=== PATIENT | male | born 1970 | race Two or more races ===

== ENCOUNTER 2022-05-10 17:51 | Inpatient (IN) | payer OTHER ==
[~2022-05-10] VITALS: Ht 167.6 cm; Wt 129.3 kg
--- NOTE | 2022-05-10 18:00 | NUR ---
pt bibra from urgent care, flu like symptoms for past couple of days. pt is tachycardic and afebrile scow captain. gowned and placed on monitor. awaiting md araya.
[2022-05-10] MEDS ORDERED: DEXAMETHASONE SOD PHOSPHATE 10 MG/ML VIAL ONE (18:53)
[2022-05-10] MEDS ORDERED: ACETAMINOPHEN ES 500 MG TABLET ONE (18:53)
[2022-05-10] MEDS ORDERED: DEXAMETHASONE SOD PHOSPHATE 10 MG/ML VIAL IV ONE (19:00)
[2022-05-10] MEDS ORDERED: IV NS 0.9% 1,000 ML BAG IV ONE (19:00)
[2022-05-10] MEDS ORDERED: ACETAMINOPHEN ES 500 MG TABLET PO ONE ×2 (19:00→22:00)
--- NOTE | 2022-05-10 19:08 | NUR ---
SUBMITTED MOVE SHEETS
--- NOTE | 2022-05-10 19:45 | NUR ---
FLU AND COVID SWAB COLLECTED
--- NOTE | 2022-05-10 19:45 | NUR ---
WITH O2 CANNULA AT 2LPM
--- NOTE | 2022-05-10 19:45 | NUR ---
RECEIVED REPORT FROM SUELLEN SIMPSON. PATIENT CAME WITH CC OF FLU. PLACED IN BED. ATTACHED TO MONITOR. VITALS CHECKED. PATIENT IS AAOX4. ABLE TO MAKE NEEDS KNOWN. WITH IV CANNULA G18 ON RIGHT AC.
[2022-05-10 19:53] LABS: BASOPHILS % (AUTO) 0.3 % (0.0-2.0); EOSINOPHILS % (AUTO) 0.5 % (0.0-6.0); HEMATOCRIT 49 % (39-51); HEMOGLOBIN 16.2 g/dL (13.5-17.5); LYMPHOCYTES # (AUTO) 0.9 K/uL (0.8-4.8); LYMPHOCYTES % (AUTO) 9.8 % (20.0-44.0); MEAN CORPUSCULAR HGB CONC 33 g/dl (31.0-36.0); MEAN CORPUSCULAR VOLUME 87 fL (80-96); MONOCYTES # (AUTO) 1.6 K/uL (0.1-1.30); NEUTROPHILS % (AUTO) 72.4 % (43.0-81.0); PLATELET COUNT (AUTO) 197 K/uL (150-450); RED BLOOD CELL COUNT(AUTO) 5.62 MIL/uL (4.5-6.0); WHITE BLOOD COUNT (AUTO) 9.6 K/uL (4.3-11.0)
[2022-05-10 20:28] LABS: SITE, VBG Left Radial; VBG COHb 0.8 %; VBG MetHb 0.2 %; VBG O2Hb 87.8 %; VENT MODE, VBG Room Air
--- NOTE | 2022-05-10 20:31 | NUR ---
CALLED [facility], PAGED FOR ADMISSION
--- NOTE | 2022-05-10 20:32 | NUR ---
PAGED EPIC LATOYA JOHN NP
[2022-05-10 20:55] LABS: CALCIUM, SERUM 8.4 mg/dL (8.5-10.1); CARBON DIOXIDE 29 mmol/L (21-32); CHLORIDE 94 mmol/L (98-107); CREATININE 0.7 mg/dL (0.6-1.3); GLUCOSE 128 mg/dL (74-106); POTASSIUM 3.3 mmol/L (3.5-5.1); SODIUM SERUM 134 mmol/L (136-145); UREA NITROGEN, BLOOD 7 mg/dL (7-18)
[2022-05-10] MEDS ORDERED: ASPIRIN 325 MG TABLET PO ONE (21:00)
[2022-05-10 21:15] LABS: ALANINE AMINOTRANSFERASE 96 U/L (12-78); ALBUMIN 3.8 g/dL (3.4-5.0); ALKALINE PHOSPHATASE 98 U/L (46-116); ASPARTATE AMINOTRANSFERASE 83 U/L (15-37); BILIRUBIN,DIRECT 0.5 mg/dL (0.0-0.2); BILIRUBIN,TOTAL 1.9 mg/dL (0.2-1.0); TOTAL PROTEIN, SERUM 8.4 g/dL (6.4-8.2)
[2022-05-10] MEDS ORDERED: ACETAMINOPHEN 325 MG TABLET PO PRN (21:30)
[2022-05-10] MEDS ORDERED: MAGNESIUM HYDROXIDE 30 ML UDC PO PRN (21:30)
[2022-05-10] MEDS ORDERED: Z GUARD REMEDY 4 OZ OINT TP PRN (21:30)
[2022-05-10] MEDS ORDERED: AZITHROMYCIN 500 MG in IV D5W 250 ML IV SCH (21:30)
[2022-05-10] MEDS ORDERED: ENOXAPARIN SODIUM 40 MG/0.4 ML DISP.SYRIN SQ SCH (21:30)
[2022-05-10] MEDS ORDERED: MAG HYDROX/AL HYDROX/SIMETH 30 ML UDC PO PRN (21:30)
[2022-05-10] MEDS ORDERED: ALBUTEROL FS 2.5 MG/0.5 ML VIAL.NEB NEB PRN (21:30)
[2022-05-10 21:43] LABS: BAND % (MANUAL) 1 % (0.0-5.0); EOSINOPHILS % (MANUAL) 1 % (0-4); LYMPHOCYTES % (MANUAL) 10 % (16-48); MONOCYTES % (MANUAL) 16 % (0-11.0); NEUTROPHILS % (MANUAL) 72 (42-76)
[2022-05-10] MEDS: POTASSIUM CL. PREMIX PERIPHER. 50 ML IV SCH ×2 (22:00→23:00)
[2022-05-10 22:26] LABS: C-REACTIVE PROTEIN 3.3 mg/dL (0.0-0.9)
--- NOTE | 2022-05-11 01:06 | NUR ---
ROOM 109
[2022-05-11] MEDS ORDERED: ASPIRIN 325 MG TABLET ONE (01:09)
[2022-05-11] MEDS ORDERED: ACETAMINOPHEN ES 500 MG TABLET ONE (01:26)
[2022-05-11] MEDS ORDERED: IPRATROPIUM NEB FS 0.5 MG/2.5 ML AMPUL.NEB NEB PRN (02:00)
--- NOTE | 2022-05-11 02:13 | NUR ---
REPORT GIVEN TO LENA KEN
--- NOTE | 2022-05-11 03:47 | NUR ---
URINE SPECIMEN SENT TO LAB, AUTOMOTIVE TIRE WORKER CAME TO DRAW BLOODS
[2022-05-11 04:08] LABS: BILIRUBIN,URINE NEGATIVE (NEGATIVE); COLOR,URINE YELLOW (YELLOW); LEUKOCYTE ESTERASE ,URINE NEGATIVE (NEGATIVE); NITRITE, URINE NEGATIVE (NEGATIVE); PROTEIN,URINE NEGATIVE (NEGATIVE); UGLUCOSE NEGATIVE (NEGATIVE); UROBILINOGEN,URINE 0.2 EU/dL (0.2)
--- NOTE | 2022-05-11 04:10 | NUR ---
ADMISSION 51 y/o male A/O x4. Skin intact, BLE dryness. IV Right AC intact. [place] patient to room, unit, staff. Contact/Droplet/Airborne precaution maintained r/o Covid 19. Covid test rapid negative. PCR pending.
--- NOTE | 2022-05-11 04:11 | NUR ---
TRANSFERRED PT TO ROOM VIA ACLS PROTOCOL
[2022-05-11 04:16] LABS: BACTERIA,URINE None seen /HPF (None Seen); SQUAMOUS EPITHELIAL CELL,UR Few /HPF (None Seen); WBC,URINE 0-2 /HPF (0-3)
--- NOTE | 2022-05-11 04:37 | NUR ---
CRITICAL VALUE Troponin high 381. Notified TEENAGE BABYSITTER Judi Ely with no new orders at this time. Patient denies any discomfort, no c/o chest pain. Will cont to monitor.
--- NOTE | 2022-05-11 07:30 | NUR ---
CAFETERIA ATTENDANT OPENING NOTES: RECEIVED PT IN BED AWAKE. ALERT AND ORIENTED X 4 AND ABLE TO MAKE NEEDS KNOWN. ON O2 INHALATION @ 2LPM VIA NC ON AND OFF AND TOLERATING WELL. ON RN DOCUMENTATION WITH CURRENT READING OF SINUS@70BPM. PT NOTED WITH RFA GAUGE 18,PATENT,INTACT AND SL. SAFETY MEASURES MAINTAINED: BED LOCKED AND IN LOWEST POSITION,SIDE RAILS UP X 2. CALL LIGHT IN EASY REACH FOR HELP. WILL MONITOR PT ACCORDINGLY.
[2022-05-11 07:37] LABS: CALCIUM, SERUM 8.2 mg/dL (8.5-10.1); CREATININE 0.6 mg/dL (0.6-1.3); MAGNESIUM 2.2 mg/dL (1.8-2.4); PHOSPHORUS 3.9 mg/dL (2.5-4.9); POTASSIUM 3.6 mmol/L (3.5-5.1)
[2022-05-11] MEDS: PANTOPRAZOLE 40 MG TABLET.DR PO SCH (07:45)
[2022-05-11 08:00] VITALS: BP 148/85
--- NOTE | 2022-05-11 08:03 | NUR ---
END OF SHIFT REPORT Patient in bed, A/O x4. Sinus rhythm HR 70's in the Telemonitor. Denies chest pain. Maintaining Oxygenation 97% in RA. Covid rapid negative result. Covid PCR test pending result. location worker consult, patient homeless. Endorsed to SUELLEN Redman.
[2022-05-11 08:05] LABS: THYROID STIMULATING HORMONE 0.665 uIU/mL (0.358-3.74)
[2022-05-11 08:39] LABS: BASOPHILS % (AUTO) 0.1 % (0.0-2.0); HEMATOCRIT 46 % (39-51); HEMOGLOBIN 15.2 g/dL (13.5-17.5); LYMPHOCYTES % (AUTO) 13.8 % (20.0-44.0); MEAN CORPUSCULAR HGB CONC 33 g/dl (31.0-36.0); MEAN CORPUSCULAR VOLUME 87 fL (80-96); MONOCYTES # (AUTO) 1.1 K/uL (0.1-1.30); MONOCYTES % (AUTO) 15.1 % (2.0-12.0); PLATELET COUNT (AUTO) 191 K/uL (150-450); RED BLOOD CELL COUNT(AUTO) 5.26 MIL/uL (4.5-6.0)
[2022-05-11] MEDS ORDERED: RIFA300C4 PO (08:47)
[2022-05-11] MEDS ORDERED: IPRA3AMP22 IH (08:47)
[2022-05-11] MEDS ORDERED: POTA20TA83 PO (08:47)
[2022-05-11] MEDS ORDERED: MAGN400T8 PO (08:47)
[2022-05-11] MEDS ORDERED: METF500S7 PO (08:47)
[2022-05-11] MEDS ORDERED: AMLO10TA4 PO (08:47)
[2022-05-11] MEDS ORDERED: FLUT10.62 IH (08:47)
[2022-05-11] MEDS ORDERED: MONT10TA22 PO (08:47)
[2022-05-11] MEDS: AZITHROMYCIN 500 MG in IV D5W 250 ML IV SCH (08:51)
[2022-05-11] MEDS: ASPIRIN 81 MG TAB.CHEW PO SCH (08:51)
[2022-05-11] MEDS: ENOXAPARIN SODIUM 40 MG/0.4 ML DISP.SYRIN SQ SCH (08:54)
[2022-05-11] MEDS ORDERED: DEXTROSE 50%-WATER 50 ML DISP.SYRIN IV PRN (09:00)
[2022-05-11] MEDS ORDERED: DEXAMETHASONE SOD PHOSPHATE 10 MG/ML VIAL IV SCH (09:00)
[2022-05-11] MEDS ORDERED: RIFAMPIN 300 MG CAPSULE PO SCH (09:00)
[2022-05-11] MEDS: METFORMIN 500 MG TABLET PO SCH ×2 (09:07→16:16)
[2022-05-11] MEDS: MAGNESIUM OXIDE 400 MG TABLET PO SCH (09:07)
[2022-05-11] MEDS: AMLODIPINE BESYLATE 10 MG TABLET PO SCH (09:08)
[2022-05-11] MEDS ORDERED: CEFTRIAXONE 1GM BAG (ER ONLY) 1 GM/50 ML PIGGYBACK IV SCH (10:00)
[2022-05-11] MEDS ORDERED: ALBUTEROL FS 2.5 MG/0.5 ML VIAL.NEB NEB SCH (10:00)
[2022-05-11] MEDS: ONDANSETRON HCL/PF 4 MG/2 ML VIAL IVP PRN (11:18)
[2022-05-11] MEDS: BLOOD SUGAR DIAGNOSTIC 1 EACH STRIP IN SCH ×3 (11:38→22:55)
[2022-05-11] MEDS: INSULIN REGULAR, HUMAN 100 UNIT/ML 3 ML VIAL SQ PRN ×3 (11:39→23:10)
[2022-05-11] MEDS: CEFTRIAXONE 2 G in IV D5W 100 ML IV SCH (11:49)
[2022-05-11] MEDS: FLUTICASONE/VILANTEROL 1 EACH BLST.W.DEV IH SCH (11:50)
[2022-05-11 12:00] VITALS: BP 133/80
[2022-05-11] MEDS: IPRATROPIUM BROMIDE 14 GM INHALER (or 12.9 GM) IH SCH ×2 (12:42→19:30)
--- NOTE | 2022-05-11 13:17 | NUR ---
"SW Consult: SW consult requested for patient possible homelessness. SW conducted a phone assessment with patient who is in [facility] with possible COVID +. Patient was brought in due to fever, cough, and congestion. Patient presents alert and oriented x3 (self,place,time). Patient reported that he is currently homeless and has been living in his car for about a year. Patient stated prior to being homeless he was renting a room with a friend. 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 Patient stated that he currently has no family support. SW assessed for suicidal or homicidal ideation, pt denied. SW assessed for visual/auditory hallucinations, pt denied. Pt denied any mental illnesses. SW assessed for substance abuse and pt denied. Pt stated that he would want to return back to his car which he has parked it near [facility] but was not able to identify address. SW offered pt resources such as shelters and pt was accepting. DC PLAN: Pt reported that he lives in his car and has been living in his car for a year. He reported upon discharge he would want to return back to his car which is parked in [facility] (address was unable to be identified). Shelters: [place] Provider: [facility] [place] Address: [address] [place], [address] # of Beds: 47 Population Served: [facility] 6 | [facility] Katie Allred [place] Provider: [facility] Address: [address], [address] # of Beds: 66 Population Served: [facility] [employer] [place] Provider: [facility] Serve Address: [address] [facility], [address] # of Beds: 56 Population Served: [facility] [place] Provider: [facility] Address: [address] [facility] [facility], [address] # of Beds: 49 Population Served: [facility] 8 | [facility] Provider: First to Serve Address: [address] [facility] [facility], [address] # of Beds: 37 Population Served: Co[facility] Hygiene: [facility]: [address] [address] [place] ; [place] [facility] [address] [facility] ; [facility] [address] [place] . Food Resources: [place] [facility] at [facility] [address] [place]; Meet Each Need with Dignity ([facility]) [address] [facility] [place]; [facility] [address] [facility]; [facility] [address] [facility] [place]. Mental Health resources provided: [facility] [address] [place] [address] ; [facility] [address], [place] [address] ; [facility] [address] [place] [address] ; [facility] [address] [place], [place] [phone] Healthcare Clinics: [facility] [address], [address] [place]. [place] ; [facility] [address] [place] [address]; [facility] [address] [facility]. [place] [phone] Counseling--Outpatient [facility] [address], [place] [address] (Specializes in in-depth psychotherapy for emotional distress: anxiety, depression, interpersonal conflicts, life transitions, childhood abuse) [facility] [address] [place] [address] (Assist with solving problem marital difficulties, separation & divorce, aging parents, & grief, chronic & terminal illness) [facility] [address] [place] [address] (Deal with loss & grief, anxiety, marital difficulties) Homebound/Mental Health Services [address] [place], [place] [address] (Provide in-home mental services to people who are incapable of leaving their homes) [facility] [address] [place] [address] [facility] [address] [place], [place] [phone] PSYCHIATRIC OUTPATIENT SERVICES [facility] Partial Hospitalization and Intensive Outpatient Program (Managed Care and [place] Only)[address] [address] [facility] [phone] [facility] Partial Hospitalization and Outpatient [id number] [place], [place] [phone] [facility] [id number] [place], [place] [phone] [facility] Partial Hospitalization and Outpatient [id number] [facility] Wilton BerriosBELLE MEAD, [phone] "
--- NOTE | 2022-05-11 13:40 | NUR ---
RN NOTES: MRSA R NARES SPECIMEN GATHERED. CALLED LAB FOR MANAGER ARCHITECTURE.
[2022-05-11] MEDS: RIFAMPIN 300 MG CAPSULE PO SCH (15:18)
[2022-05-11 16:00] VITALS: BP 129/80
[2022-05-11] MEDS: methylPREDNISolone SOD SUCC 40 MG/ML VIAL IV SCH (16:16)
[2022-05-11 17:36] LABS: BASOPHILS % (MANUAL) 0 % (0.0-2.0); EOSINOPHILS % (MANUAL) 0 % (0-4); LYMPHOCYTES % (MANUAL) 14 % (16-48); MONOCYTES % (MANUAL) 13 % (0-11.0); NEUTROPHILS % (MANUAL) 73 (42-76)
--- NOTE | 2022-05-11 18:49 | NUR ---
FLASK CLEANER CLOSING NOTES: PT IN BED AWAKE. ALERT AND ORIENTED X 4 AND ABLE TO MAKE NEEDS KNOWN. ON O2 INHALATION @ 2LPM VIA NC ON AND OFF AND TOLERATING WELL. ON BRIM POUNCING MACHINE OPERATOR WITH CURRENT READING OF SINUS@79BPM. PT NOTED WITH RFA GAUGE 18,PATENT,INTACT AND SL. SAFETY MEASURES MAINTAINED: BED LOCKED AND IN LOWEST POSITION,SIDE RAILS UP X 2. CALL LIGHT IN EASY REACH FOR HELP. WILL MONITOR PT ACCORDINGLY.ENDORSED TO HEAD GREENSKEEPER RN FOR MARY CARMEN.
--- NOTE | 2022-05-11 19:40 | NUR ---
PICKLER HELPER OPENING NOTE RECEIVED PT IN BED AWAKE. PT ALERT AND ORIENTED X 4, AND ABLE TO MAKE NEEDS KNOWN. WITH EPISODES OF FORGETFULNESS AND CONFUSION. NEEDS FREQUENT REORIENTATION AND RE DIRECTION. PT APPEARED ANXIOUS. ON O2 INHALATION @ 2LPM VIA NC AND TOLERATING WELL. ON POUND ATTENDANT WITH CURRENT READING OF A FIB @ 77 BPM. IV ACCESS TO LEFT FA GAUGE 20, PATENT, INTACT AND SL. SAFETY MEASURES MAINTAINED: BED LOCKED AND IN LOWEST POSITION,SIDE RAILS UP X 2. CALL LIGHT IN EASY REACH FOR HELP. WILL MONITOR PT ACCORDINGLY.
[2022-05-11 20:00] VITALS: BP 159/97
[2022-05-11] MEDS: MONTELUKAST SODIUM (10MG) 10 MG TABLET PO SCH (22:54)
[2022-05-12] VITALS: BP 152/88
[2022-05-12 04:00] VITALS: BP 130/65
[2022-05-12 05:49] LABS: BASOPHILS % (AUTO) 0.1 % (0.0-2.0); HEMATOCRIT 46 % (39-51); HEMOGLOBIN 15.2 g/dL (13.5-17.5); LYMPHOCYTES # (AUTO) 1.5 K/uL (0.8-4.8); LYMPHOCYTES % (AUTO) 22.7 % (20.0-44.0); MEAN CORPUSCULAR HGB CONC 33 g/dl (31.0-36.0); MEAN CORPUSCULAR VOLUME 87 fL (80-96); MONOCYTES # (AUTO) 1.1 K/uL (0.1-1.30); MONOCYTES % (AUTO) 15.9 % (2.0-12.0); NEUTROPHILS # (AUTO) 4.2 K/uL (1.8-8.9); NEUTROPHILS % (AUTO) 61.3 % (43.0-81.0); PLATELET COUNT (AUTO) 213 K/uL (150-450); RED BLOOD CELL COUNT(AUTO) 5.31 MIL/uL (4.5-6.0); WHITE BLOOD COUNT (AUTO) 6.8 K/uL (4.3-11.0)
[2022-05-12 06:04] LABS: ALBUMIN 3.1 g/dL (3.4-5.0); BILIRUBIN,TOTAL 0.6 mg/dL (0.2-1.0); CREATININE 0.7 mg/dL (0.6-1.3); POTASSIUM 3.4 mmol/L (3.5-5.1); TOTAL PROTEIN, SERUM 7.2 g/dL (6.4-8.2)
[2022-05-12] MEDS: BLOOD SUGAR DIAGNOSTIC 1 EACH STRIP IN SCH ×4 (07:09→22:58)
[2022-05-12] MEDS: INSULIN REGULAR, HUMAN 100 UNIT/ML 3 ML VIAL SQ PRN ×2 (07:10→23:13)
--- NOTE | 2022-05-12 07:10 | NUR ---
PUBLIC SERVICE OFFICER CLOSING NOTE PT IN BED AWAKE. ALERT AND ORIENTED X 4 AND ABLE TO MAKE NEEDS KNOWN. ON O2 INHALATION @ 2LPM VIA NC ON AND OFF AND TOLERATING WELL. ON SALES ORDER ADMINISTRATOR WITH CURRENT READING OF SINUS. PT NOTED WITH RFA GAUGE 18,PATENT,INTACT AND SL. SAFETY MEASURES MAINTAINED: BED LOCKED AND IN LOWEST POSITION,SIDE RAILS UP X 2. CALL LIGHT IN EASY REACH FOR HELP. WILL ENDORSE TO AM SHIFT RN FOR MARY CARMEN.
[2022-05-12] MEDS: IPRATROPIUM BROMIDE 14 GM INHALER (or 12.9 GM) IH SCH ×2 (07:35→13:30)
--- NOTE | 2022-05-12 07:59 | NUR ---
FURNITURE FINISHER HELPER OPENING NOTE RECEIVED PT IN BED AWAKE. PT ALERT AND ORIENTED X 4, AND ABLE TO MAKE NEEDS KNOWN. WITH EPISODES OF FORGETFULNESS AND CONFUSION. NEEDS FREQUENT REORIENTATION AND RE DIRECTION. PT APPEARED ANXIOUS. ON O2 INHALATION @ 2LPM VIA NC AND TOLERATING WELL. ON CONSULTING IT ARCHITECT. NOTED WITH RIGHT AC PIV INTACT AND SL. SAFETY MEASURES MAINTAINED: BED LOCKED AND IN LOWEST POSITION,SIDE RAILS UP X 2. CALL LIGHT IN EASY REACH FOR HELP. PLAN OF CARE CONTINUE.
[2022-05-12 08:00] VITALS: BP 158/94
[2022-05-12] MEDS: ASPIRIN 81 MG TAB.CHEW PO SCH (08:46)
[2022-05-12] MEDS: MAGNESIUM OXIDE 400 MG TABLET PO SCH (08:46)
[2022-05-12] MEDS: POTASSIUM CHLORIDE 20 MEQ TAB.PRT.SR PO SCH ×2 (08:46→08:56)
[2022-05-12] MEDS: RIFAMPIN 300 MG CAPSULE PO SCH (08:47)
[2022-05-12] MEDS: AMLODIPINE BESYLATE 10 MG TABLET PO SCH (08:47)
[2022-05-12] MEDS: VALSARTAN 80 MG TABLET PO SCH (08:47)
[2022-05-12] MEDS: methylPREDNISolone SOD SUCC 40 MG/ML VIAL IV SCH ×2 (08:47→16:05)
[2022-05-12] MEDS: PANTOPRAZOLE 40 MG TABLET.DR PO SCH (08:48)
[2022-05-12] MEDS: METFORMIN 500 MG TABLET PO SCH ×2 (08:48→16:05)
[2022-05-12] MEDS: ENOXAPARIN SODIUM 40 MG/0.4 ML DISP.SYRIN SQ SCH (08:53)
[2022-05-12] MEDS: FLUTICASONE/VILANTEROL 1 EACH BLST.W.DEV IH SCH (08:54)
[2022-05-12] MEDS: AZITHROMYCIN 500 MG in IV D5W 250 ML IV SCH (08:56)
[2022-05-12] MEDS: CEFTRIAXONE 2 G in IV D5W 100 ML IV SCH (11:12)
--- NOTE | 2022-05-12 11:41 | NUR ---
ALTERATIONS WORKROOM CLERK NOTES ULTRASOUND OF ABDOMEN DONE. PLAN OF CARE CONTINUE.
[2022-05-12 12:00] VITALS: BP 150/80
[2022-05-12] MEDS: ONDANSETRON HCL/PF 4 MG/2 ML VIAL IVP PRN (12:17)
[2022-05-12 14:39] LABS: BAND % (MANUAL) 4 % (0.0-5.0); EOSINOPHILS % (MANUAL) 1 % (0-4); LYMPHOCYTES % (MANUAL) 24 % (16-48); MONOCYTES % (MANUAL) 13 % (0-11.0); NEUTROPHILS % (MANUAL) 58 (42-76)
[2022-05-12 16:00] VITALS: BP 151/82
--- NOTE | 2022-05-12 17:41 | NUR ---
URINE COLLECTED AND CALLED LAB TO PICK IT UP. Addendum: 05/12/22 at 1849 by ANASTASIA ESCALANTE RN WRONG PATIENT
--- NOTE | 2022-05-12 18:27 | NUR ---
SUPERVISOR ANODIZING CLOSING NOTE PATIENT AWAKE SITTING AT THE EDGE OF THE BED, PT ALERT AND ORIENTED X 4, AND ABLE TO MAKE NEEDS KNOWN. WITH BRP, AMBULATORY. ON O2 INHALATION @ 2LPM VIA NC AND TOLERATING WELL. ON HOUSEPERSON WITH SR READING HR 89. NOTED WITH RIGHT AC PIV PATENT AND INTACT, FLUSHES WELL. SAFETY MEASURES MAINTAINED: BED LOCKED AND IN LOWEST POSITION,SIDE RAILS UP X 2. CALL LIGHT IN EASY REACH FOR HELP. WILL ENDORSE TO NIGHT NURSE FOR MARY CARMEN. Addendum: 05/12/22 at 1925 by ANASTASIA ESCALANTE RN LIVER ULTRASOUND RESULT RECEIVED, INFORMED DR. CHARLES, NO NEW ORDER, ENDORSED TO CEO & CO FOUNDER NURSE.
--- NOTE | 2022-05-12 19:40 | NUR ---
BIOMEDICAL ENGINEERING TECHNICIAN OPENING NOTE RECEIVED PATIENT IN BED; AWAKE, ALERT AND ORIENTED X 4. ON O2 INHALATION @ 2 LPM VIA NASAL CANNULA; TOLERATING WELL. BREATHING EVEN AND NONLABORED. NOT IN ANY FORM OF RESPIRATORY OR CARDIAC DISTRESS. DENIES ANY PAIN OR DISCOMFORT AT THIS TIME. ON TELE MONITORING WITH CURRENT READING OF SINUS RHYTHM HR-75 BPM. WITH IV ACCESS ON RIGHT AC 18G; PATENT, INTACT AND SALINE LOCKED. SAFETY MEASURES IMPLEMENTED: CALL LIGHT AND TABLE WITHIN REACH, SIDE RAILS UP X 2, BED IN LOWEST LOCKED POSITION. WILL CONTINUE TO MONITOR.
[2022-05-12 20:00] VITALS: BP 159/90
[2022-05-12] MEDS: MONTELUKAST SODIUM (10MG) 10 MG TABLET PO SCH (22:08)
[2022-05-13] VITALS: BP 162/93
--- NOTE | 2022-05-13 00:10 | NUR ---
RN NOTE BP RECHECKED - 150/89 MM HG
[2022-05-13 04:00] VITALS: BP 151/87
[2022-05-13 06:03] LABS: BASOPHILS % (AUTO) 0.2 % (0.0-2.0); EOSINOPHILS % (AUTO) 0.1 % (0.0-6.0); HEMATOCRIT 45 % (39-51); HEMOGLOBIN 14.9 g/dL (13.5-17.5); LYMPHOCYTES # (AUTO) 1.8 K/uL (0.8-4.8); LYMPHOCYTES % (AUTO) 26.1 % (20.0-44.0); MEAN CORPUSCULAR HGB CONC 33 g/dl (31.0-36.0); MEAN CORPUSCULAR VOLUME 87 fL (80-96); MONOCYTES % (AUTO) 14.2 % (2.0-12.0); NEUTROPHILS # (AUTO) 4.2 K/uL (1.8-8.9); NEUTROPHILS % (AUTO) 59.4 % (43.0-81.0); PLATELET COUNT (AUTO) 226 K/uL (150-450); RED BLOOD CELL COUNT(AUTO) 5.17 MIL/uL (4.5-6.0); WHITE BLOOD COUNT (AUTO) 7.1 K/uL (4.3-11.0)
[2022-05-13 06:14] LABS: BILIRUBIN,TOTAL 0.3 mg/dL (0.2-1.0); CALCIUM, SERUM 7.7 mg/dL (8.5-10.1); CREATININE 0.6 mg/dL (0.6-1.3); POTASSIUM 3.3 mmol/L (3.5-5.1); TOTAL PROTEIN, SERUM 6.9 g/dL (6.4-8.2)
--- NOTE | 2022-05-13 06:55 | NUR ---
ELECTRICAL APPRENTICE CLOSING NOTE PATIENT IN BED; AWAKE, A/O X 4. STILL ON O2 INHALATION @ 2 LPM VIA NASAL CANNULA; WELL TOLERATED. BREATHING EQUAL AND UNLABORED. IN NO ACUTE DISTRESS. NO C/O ANY PAIN OR DISCOMFORT AT THIS TIME. ON TELE MONITORING WITH CURRENT READING OF SINUS RHYTHM HR-76 BPM. WITH IV ACCESS ON RIGHT AC 18G; PATENT, INTACT AND SALINE LOCKED. SAFETY MEASURES MAINTAINED: CALL LIGHT AND TABLE WITHIN REACH, SIDE RAILS UP X 2, BED IN LOWEST LOCKED POSITION. ENDORSED TO INCOMING NURSE FOR MARY CARMEN.
--- NOTE | 2022-05-13 07:30 | NUR ---
PRECISION ASSEMBLY INSPECTOR OPENING NOTE PATIENT IN BED; AWAKE, A/O X 4. STILL ON O2 INHALATION @ 2 LPM VIA NASAL CANNULA; WELL TOLERATED. BREATHING EQUAL AND UNLABORED. IN NO ACUTE DISTRESS. NO C/O ANY PAIN OR DISCOMFORT AT THIS TIME. ON TELE MONITORING WITH CURRENT READING OF SINUS RHYTHM HR-78 BPM. WITH IV ACCESS ON RIGHT AC 18G; PATENT, INTACT AND SALINE LOCKED. SAFETY MEASURES MAINTAINED: CALL LIGHT AND TABLE WITHIN REACH, SIDE RAILS UP X 2, BED IN LOWEST LOCKED POSITION. WILL CONTINUE TO MONITOR.
[2022-05-13 08:00] VITALS: BP 146/86
[2022-05-13] MEDS: BLOOD SUGAR DIAGNOSTIC 1 EACH STRIP IN SCH ×4 (08:02→21:57)
[2022-05-13] MEDS: INSULIN REGULAR, HUMAN 100 UNIT/ML 3 ML VIAL SQ PRN ×3 (08:03→22:18)
[2022-05-13] MEDS: IPRATROPIUM BROMIDE 14 GM INHALER (or 12.9 GM) IH SCH ×3 (08:05→18:56)
[2022-05-13] MEDS: PANTOPRAZOLE 40 MG TABLET.DR PO SCH (08:32)
[2022-05-13] MEDS: METFORMIN 500 MG TABLET PO SCH ×2 (08:54→17:32)
[2022-05-13] MEDS: methylPREDNISolone SOD SUCC 40 MG/ML VIAL IV SCH ×2 (08:54→17:33)
[2022-05-13] MEDS: ASPIRIN 81 MG TAB.CHEW PO SCH (08:54)
[2022-05-13] MEDS: MAGNESIUM OXIDE 400 MG TABLET PO SCH (08:55)
[2022-05-13] MEDS: VALSARTAN 80 MG TABLET PO SCH (08:55)
[2022-05-13] MEDS: AMLODIPINE BESYLATE 10 MG TABLET PO SCH (08:56)
[2022-05-13] MEDS: ENOXAPARIN SODIUM 40 MG/0.4 ML DISP.SYRIN SQ SCH (08:57)
--- NOTE | 2022-05-13 10:02 | NUR ---
RN NOTE LOULUO WALKER NOT AVAILABLE IN THE UNIT, MADE A FOLLOW UP TO PHARMACY. WILL MONITOR.
[2022-05-13] MEDS: FLUTICASONE/VILANTEROL 1 EACH BLST.W.DEV IH SCH (10:30)
[2022-05-13] MEDS ORDERED: POTASSIUM CHLORIDE 20 MEQ TAB.PRT.SR PO ONE (11:00)
[2022-05-13 12:00] VITALS: BP 156/85
[2022-05-13 16:00] VITALS: BP 151/92
--- NOTE | 2022-05-13 19:36 | NUR ---
INDUSTRIAL REFRIGERATION MECHANIC CLOSING NOTE PATIENT IN BED; AWAKE, A/O X 4. STILL ON O2 INHALATION @ 2 LPM VIA NASAL CANNULA; WELL TOLERATED. BREATHING EQUAL AND UNLABORED. IN NO ACUTE DISTRESS. NO C/O ANY PAIN OR DISCOMFORT AT THIS TIME. ON TELE MONITORING WITH CURRENT READING OF SINUS RHYTHM HR-81 BPM. WITH IV ACCESS ON RIGHT AC 18G; PATENT, INTACT AND SALINE LOCKED. ALL MEDS GIVEN. KEPT COMFORTABLE. SAFETY MEASURES MAINTAINED: CALL LIGHT AND TABLE WITHIN REACH, SIDE RAILS UP X 2, BED IN LOWEST LOCKED POSITION. ENDORSED TO NEXT NOD FOR MARY CARMEN.
--- NOTE | 2022-05-13 19:53 | NUR ---
noc rn note received patient in bed, a/ox4. no s/s of apparent distress on 2lpm of o2 via nc. denies any pain at this time. reading sr on the tele monitor with 78 bpm. no fluids running at this time. needs attended for now. call light within reach. safety in place. will continue with the plan of care for patient.
[2022-05-13 20:00] VITALS: BP 174/99
--- NOTE | 2022-05-13 21:42 | NUR ---
noc rn note- bp re-check patient bp 183/91 upon re-check, at rest. Messaged environmental field technician Judi for order. environmental field technician ordered Apresoline 10mg q4hr PRN to keep SBP <160. order carried out.
[2022-05-13] MEDS: MONTELUKAST SODIUM (10MG) 10 MG TABLET PO SCH (21:56)
[2022-05-13] MEDS: hydrALAZINE HCL IV 20 MG VIAL IV PRN (21:57)
--- NOTE | 2022-05-13 23:09 | NUR ---
noc rn note patient just ambulated to the restroom at this time and told me to just re-check bp for midnight.
[2022-05-14] VITALS (7 sets, daily range): BP systolic 149–167; BP diastolic 83–97
[2022-05-14] MEDS: hydrALAZINE HCL IV 20 MG VIAL IV PRN ×2 (04:28→17:55)
[2022-05-14 05:49] LABS: ABG BASE EXCESS 8.9 mmol/L; ABG PCO2 52.1 mmHg (35.0-45.0); ABG PH 7.445 (7.350-7.450); ABG PO2 55.2 mmHg (75.0-100.0); AaDO2 32.1 mmHg; MetHb 0.3 % (0.0-1.5); O2Hb 88.8 % (94.0-97.0); SITE, ABG Right Radial; VENT MODE, BG ROOM AIR
--- NOTE | 2022-05-14 06:41 | NUR ---
noc rn note refused blood draw at this time. told candy waffle assembler to come back later per patient request.
--- NOTE | 2022-05-14 07:04 | NUR ---
RESIDENTIAL PLUMBER CLOSING NOTE PATIENT IN BED WITH EYES CLOSED, EASY TO AROUSE. STILL ON O2 INHALATION @ 2 LPM VIA NASAL CANNULA, SOB STILL NOTED. NO C/O ANY PAIN OR DISCOMFORT AT THIS TIME. ON TELE MONITORING WITH CURRENT READING OF SINUS RHYTHM HR-68 BPM. NO FLUIDS RUNNING AT THIS TIME. ALL MEDS GIVEN. KEPT COMFORTABLE. SAFETY MEASURES MAINTAINED: CALL LIGHT AND TABLE WITHIN REACH, SIDE RAILS UP X 2, BED IN LOWEST LOCKED POSITION. ENDORSED TO NEXT NOD FOR MARY CARMEN.
[2022-05-14] MEDS: IPRATROPIUM BROMIDE 14 GM INHALER (or 12.9 GM) IH SCH ×3 (07:35→21:00)
--- NOTE | 2022-05-14 07:50 | NUR ---
PAPER STRIPPER OPENING NOTE Patient in bed, awake. A/O x 4, able to make needs known. On O2 at 2LPM via NC , no SOB or s/s of distress noted. IV access on RAC #18 SL. On tele monitoring showing SR, HR on the 60's. Safety precautions in place: bed in low, locked position; siderails up x 2; call light within reach. Will continue to monitor.
[2022-05-14] MEDS: FLUTICASONE/VILANTEROL 1 EACH BLST.W.DEV IH SCH (08:47)
[2022-05-14] MEDS: PANTOPRAZOLE 40 MG TABLET.DR PO SCH (08:47)
[2022-05-14] MEDS: ASPIRIN 81 MG TAB.CHEW PO SCH (08:47)
[2022-05-14] MEDS: MAGNESIUM OXIDE 400 MG TABLET PO SCH (08:47)
[2022-05-14] MEDS: METFORMIN 500 MG TABLET PO SCH ×3 (08:47→16:23)
[2022-05-14] MEDS: methylPREDNISolone SOD SUCC 40 MG/ML VIAL IV SCH (08:48)
[2022-05-14] MEDS: AMLODIPINE BESYLATE 10 MG TABLET PO SCH (08:48)
[2022-05-14] MEDS: VALSARTAN 80 MG TABLET PO SCH (08:48)
[2022-05-14] MEDS: BLOOD SUGAR DIAGNOSTIC 1 EACH STRIP IN SCH ×4 (08:49→22:55)
[2022-05-14] MEDS: ENOXAPARIN SODIUM 40 MG/0.4 ML DISP.SYRIN SQ SCH (08:49)
[2022-05-14 10:57] LABS: BASOPHILS % (AUTO) 0.3 % (0.0-2.0); EOSINOPHILS % (AUTO) 0.3 % (0.0-6.0); HEMATOCRIT 48 % (39-51); HEMOGLOBIN 15.9 g/dL (13.5-17.5); LYMPHOCYTES # (AUTO) 0.9 K/uL (0.8-4.8); LYMPHOCYTES % (AUTO) 10.7 % (20.0-44.0); MEAN CORPUSCULAR HGB CONC 33 g/dl (31.0-36.0); MEAN CORPUSCULAR VOLUME 87 fL (80-96); MONOCYTES # (AUTO) 0.7 K/uL (0.1-1.30); MONOCYTES % (AUTO) 8.3 % (2.0-12.0); NEUTROPHILS # (AUTO) 6.7 K/uL (1.8-8.9); NEUTROPHILS % (AUTO) 80.4 % (43.0-81.0); PLATELET COUNT (AUTO) 214 K/uL (150-450); RED BLOOD CELL COUNT(AUTO) 5.56 MIL/uL (4.5-6.0); WHITE BLOOD COUNT (AUTO) 8.3 K/uL (4.3-11.0)
[2022-05-14] MEDS ORDERED: methylPREDNISolone SOD SUCC 40 MG/ML VIAL IV SCH (11:00)
[2022-05-14 11:26] LABS: ALBUMIN 3.1 g/dL (3.4-5.0); BILIRUBIN,TOTAL 0.4 mg/dL (0.2-1.0); CALCIUM, SERUM 7.9 mg/dL (8.5-10.1); CREATININE 0.7 mg/dL (0.6-1.3); TOTAL PROTEIN, SERUM 7.2 g/dL (6.4-8.2)
[2022-05-14 11:30] LABS: POTASSIUM 2.8 mmol/L (3.5-5.1)
--- NOTE | 2022-05-14 11:35 | NUR ---
RN NOTE Received call from September, from lab, potassium level is 2.8. Dr. Soren Chavez notified and ordered potassium 40 meq PO now and another potassium 40 meq after 4 hours. Carried out.
[2022-05-14] MEDS ORDERED: CT SWABBABLE VALVE TRANS SET 1 EA INFUS.SET MC ONE (12:01)
[2022-05-14] MEDS ORDERED: IOHEXOL-350 100 ML VIAL IV ONE (12:01)
[2022-05-14] MEDS ORDERED: IV NS 0.9% 250 ML IV ONE (12:01)
[2022-05-14] MEDS: INSULIN REGULAR, HUMAN 100 UNIT/ML 3 ML VIAL SQ PRN ×2 (12:10→22:54)
[2022-05-14] MEDS: METOPROLOL TARTRATE INJ 5 MG/5 ML AMPUL IVP PRN ×3 (12:22→12:32)
[2022-05-14] MEDS ORDERED: NITROGLYCERIN 0.4 MG/TAB BOTTLE ONE (12:25)
[2022-05-14] MEDS ORDERED: METOPROLOL TARTRATE INJ 5 MG/5 ML AMPUL ONE ×2 (12:25→12:34)
[2022-05-14] MEDS: POTASSIUM CHLORIDE 20 MEQ TAB.PRT.SR PO SCH ×2 (12:58→16:19)
[2022-05-14] MEDS ORDERED: NITROGLYCERIN 0.4 MG/TAB BOTTLE SL ONE (13:00)
[2022-05-14] MEDS ORDERED: NITROGLYCERIN 0.4 MG/TAB BOTTLE SL PRN (13:00)
--- NOTE | 2022-05-14 16:23 | NUR ---
RN NOTE Patient is s/p CTA, instructed to hold Metformin x 2 days.
--- NOTE | 2022-05-14 19:23 | NUR ---
CROWN WHEEL ASSEMBLER CLOSING NOTE Patient in bed, resting. A/O x 4, able to make needs known. On room air, breathing evenly and unlabored. No SOB or s/s of distress noted. IV access on RAC #18 SL. On tele monitoring showing SR, HR on the 70's. All needs attended to. Due meds given. Safety precautions in place: bed in low, locked position; siderails up x 2; call light within reach. Will endorse to night time nanny nurse for MARY CARMEN.
--- NOTE | 2022-05-14 20:00 | NUR ---
CONTRACTOR GENERAL BUILDING OPENING NOTES: RECEIVED PATIENT AWAKE IN BED, BED IN LOW POSITION CALL LIGHTS WITHIN REACH,, NO COMPLAIN OF PAIN AND DISCOMFORT AT THIS TIME, ON ROOM AIR SATURATING WELL, PATIENT IS A/OX4 ABLE TO MAKE NEEDS KNOWN, ON TELE [id number], ON ROOM AIR SATURATING WELL, PATIENT KEPT CLEAN AND DRY ALL NEEDS MET WILL CONTINUE TO MONITOR-
[2022-05-14] MEDS: MONTELUKAST SODIUM (10MG) 10 MG TABLET PO SCH (22:44)
--- NOTE | 2022-05-14 22:55 | NUR ---
RN NOTES: BLOOD SUGAR-162/ 3 UNITS REGULARINSULIN GIVEN PER SLIDING SCALE
[2022-05-15] VITALS: BP 167/96
[2022-05-15] MEDS: hydrALAZINE HCL IV 20 MG VIAL IV PRN ×2 (01:06→05:08)
[2022-05-15 04:00] VITALS: BP 177/94
--- NOTE | 2022-05-15 06:05 | NUR ---
NASCAR PIT CREW PERSON CLOSING NOTES: PATIENT SLEEP IN BED COFORTABLY, AROUSABLE TO VERBAL STIMULI, BED ON LOW POSITION CALL LIGHTS WITHIN REACH, NO COMPLAIN OF PAIN AND DISCOMFORT AT THIS TIME, ON ROOM AIR SATURATING WELL, PATIENT IS A/O X 4 AMBULATORY, ABLE TO MAKE NEEDS KNOWN ON TELEMONITOR- SR76, NO SOB WAS OBSERVED, PATIENT KEPT CLEAN AND DRY ALL NEEDS MET ENDORSE TO INCOMING SHIFT.
--- NOTE | 2022-05-15 07:15 | NUR ---
LENA MANNEQUIN MOLDER OPENING NOTES: RECEIVED PATIENT AWAKE IN BED, BED IN LOW POSITION CALL LIGHTS WITHIN REACH,, NO COMPLAIN OF PAIN AND DISCOMFORT AT THIS TIME, ON ROOM AIR SATURATING WELL, PATIENT IS A/OX4 ABLE TO MAKE NEEDS KNOWN, ON TELE [id number], ON ROOM AIR SATURATING WELL, ALL MEDICATION GIVEN. PREPARING PATIENT FOR DC. WILL CONTINUE TO MONITOR.
[2022-05-15] MEDS: IPRATROPIUM BROMIDE 14 GM INHALER (or 12.9 GM) IH SCH (07:35)
[2022-05-15] MEDS: PANTOPRAZOLE 40 MG TABLET.DR PO SCH (07:40)
[2022-05-15] MEDS: BLOOD SUGAR DIAGNOSTIC 1 EACH STRIP IN SCH (08:16)
[2022-05-15] MEDS ORDERED: methylPREDNISolone SOD SUCC 40 MG/ML VIAL IV SCH (09:00)
[2022-05-15] MEDS: METFORMIN 500 MG TABLET PO SCH (09:18)
[2022-05-15] MEDS: ENOXAPARIN SODIUM 40 MG/0.4 ML DISP.SYRIN SQ SCH (09:18)
[2022-05-15] MEDS: AMLODIPINE BESYLATE 10 MG TABLET PO SCH (09:19)
[2022-05-15] MEDS: ASPIRIN 81 MG TAB.CHEW PO SCH (09:19)
[2022-05-15 09:20] VITALS: BP 149/92
[2022-05-15] MEDS: MAGNESIUM OXIDE 400 MG TABLET PO SCH (09:20)
[2022-05-15] MEDS: VALSARTAN 80 MG TABLET PO SCH (09:20)
[2022-05-15] MEDS: FLUTICASONE/VILANTEROL 1 EACH BLST.W.DEV IH SCH (09:21)
--- NOTE | 2022-05-15 11:11 | NUR ---
LENA LABOR AND EMPLOYMENT PARALEGAL DC NOTES PATIENT NOTIFIED OF DC, ALL DC DOCUMENTS GIVEN, TELE BOX REMOVED, IV LINE REMOVED WITHOUT ANY ISSUES. PT IDENTIFICATION BAND REMOVED FROM WRIST, PATIENT PERSONAL BELONGINGS RETURNED. PATIENT CHOSE TO AMBULATE TO THE HOSPITAL EXIT INSTEAD OF WHEEL CHAIR. WALKED PATIENT TO HOSPITAL EXIT, GAVE PATIENT BUS CARD REQUESTED FROM SWAGER OPERATOR.PATIENT LEFT BUILDING AND HEADED FOR BUS STOP.
== END 2022-05-15 11:09 | disposition home or self-care (01) | DRG 133 ==
LOC: ER 17:59 → TELE1 05-11 01:13 → MEDSG1 05-15 09:26
PROVIDERS: ADMIT Registered Nurse; ATTEND Nurse Practitioner Acute Care
DX: J96.01 Acute respiratory failure with hypoxia (principal); I21.A1 Myocardial infarction type 2; J15.9 Unspecified bacterial pneumonia; Z20.822 Contact with and (suspected) exposure to COVID-19; E66.01 Morbid (severe) obesity due to excess calories; E87.6 Hypokalemia; G47.33 Obstructive sleep apnea (adult) (pediatric); I10 Essential (primary) hypertension; I25.10 Atherosclerotic heart disease of native coronary artery without angina pectoris; I25.2 Old myocardial infarction; J45.909 Unspecified asthma, uncomplicated; K76.0 Fatty (change of) liver, not elsewhere classified; Z86.15 Personal history of latent tuberculosis infection; Z68.42 Body mass index [BMI] 45.0-49.9, adult; E11.9 Type 2 diabetes mellitus without complications; Z59.02 Unsheltered homelessness; R74.01 Elevation of levels of liver transaminase levels; E80.6 Other disorders of bilirubin metabolism; Z22.7 Latent tuberculosis; J20.8 Acute bronchitis due to other specified organisms; Z79.84 Long term (current) use of oral hypoglycemic drugs
CPT/HCPCS: 36415; 36600; 71045-TC; 75574; 76705-TC; 80048-TC; 80053-TC; 80076-TC; 81001; 82550-TC; 82553; 82803-TC; 82962-TC; 83605-TC; 83615-TC; 83735-TC; 84100-TC; 84443-TC; 84484-TC; 85025-TC; 85378-TC; 85730-TC; 86140-TC; 86480; 86803; 87040-TC; 87081-TC; 87086-TC; 87806; 93307-TC; 94799-TC; C9803; G0378; J0360; J0456; J0696; J1100; J1650; J1815; J2405; J2920; J3480; J3490; J7030; J7040; J7050; J7060; Q9967; U0003